=== PATIENT | female | born 1980 | race Caucasian/White ===

== ENCOUNTER → 2021-04-24 | Outpatient (CLI) | payer OTHER | LOC: M WHC 08:48 | PROVIDERS: ATTEND Family Medicine | DX: Z12.31 Encounter for screening mammogram for malignant neoplasm of breast (principal); R92.1 Mammographic calcification found on diagnostic imaging of breast; N63.11 Unspecified lump in the right breast, upper outer quadrant ==

== ENCOUNTER → 2021-09-02 | Outpatient (CLI) | payer OTHER | LOC: M WHC 10:24 | PROVIDERS: ATTEND Family Medicine | DX: R92.8 Other abnormal and inconclusive findings on diagnostic imaging of breast (principal); N63.11 Unspecified lump in the right breast, upper outer quadrant; N63.21 Unspecified lump in the left breast, upper outer quadrant; R92.1 Mammographic calcification found on diagnostic imaging of breast | CPT/HCPCS: 76642; 77066; G0279 ==

== ENCOUNTER → 2021-12-10 | Outpatient (CLI) | payer OTHER ==
[~2021-12-10] MED LIST: ACET325C5 PO; AUGM500T34 PO; MULT-90 PO
== END ==
LOC: M WHC 09:32
PROVIDERS: ATTEND Surgery
DX: R59.9 Enlarged lymph nodes, unspecified (principal); L03.90 Cellulitis, unspecified
CPT/HCPCS: 76882; G0463

== ENCOUNTER → 2021-12-17 | Outpatient (CLI) | payer OTHER ==
[2021-12-17 17:31] VITALS: BP 130/84
== END ==
LOC: M WHCPRO 14:09
PROVIDERS: ATTEND Surgery
DX: R92.8 Other abnormal and inconclusive findings on diagnostic imaging of breast (principal); N63.21 Unspecified lump in the left breast, upper outer quadrant; N63.23 Unspecified lump in the left breast, lower outer quadrant; N63.32 Unspecified lump in axillary tail of the left breast; N63.41 Unspecified lump in right breast, subareolar; N63.11 Unspecified lump in the right breast, upper outer quadrant
CPT/HCPCS: 19083; 19084; 38505; 77066; 88305; G0279

== ENCOUNTER → 2021-12-26 | Outpatient (CLI) | payer OTHER ==
[~2021-12-26] MED LIST changes: +PROHANCE 279.3MG/ML 15ML VIAL As Ordered ONE
== END ==
LOC: M RAD 15:30
PROVIDERS: ATTEND Surgery
DX: C50.912 Malignant neoplasm of unspecified site of left female breast (principal); N63.10 Unspecified lump in the right breast, unspecified quadrant
CPT/HCPCS: A9576; C8908

== ENCOUNTER → 2021-12-31 | Outpatient (CLI) | payer OTHER ==
[~2021-12-31] MED LIST changes: -PROHANCE 279.3MG/ML 15ML VIAL As Ordered ONE
[2021-12-31 15:17] LABS: BLOOD UREA NITROGEN 16 MG/DL (7-18); CALCIUM LEVEL 8.8 MG/DL (8.5-10.1); CARBON DIOXIDE LEVEL 30 MEQ/L (21-32); CHLORIDE LEVEL 104 MEQ/L (98-107); CREATININE FOR GFR 0.76 MG/DL (0.55-1.30); GLOMERULAR FILTRATION RATE > 60.0 (>58); GLUCOSE, FASTING 78 MG/DL (70-100); POTASSIUM SERUM 3.9 MEQ/L (3.5-5.1); SODIUM LEVEL 138 MEQ/L (136-145)
== END ==
LOC: M PLALAB 11:08
PROVIDERS: ATTEND Surgery
DX: C50.812 Malignant neoplasm of overlapping sites of left female breast (principal)

== ENCOUNTER → 2022-01-13 | Outpatient (CLI) | payer OTHER ==
[~2022-01-13] MED LIST changes: +PROHANCE 279.3MG/ML 15ML VIAL ONE
== END ==
LOC: M PLAIMG 01-08 11:13
PROVIDERS: ATTEND Surgery
DX: R94.8 Abnormal results of function studies of other organs and systems (principal); M51.26 Other intervertebral disc displacement, lumbar region; M51.34 Other intervertebral disc degeneration, thoracic region
CPT/HCPCS: 72157; 72158; A9576

== ENCOUNTER 2022-01-30 09:05 | Observation (INO) | payer OTHER ==
[~2022-01-30] VITALS: Ht 157.5 cm; Wt 77.9 kg
[~2022-01-30 09:05] MED LIST changes: +D3 H2000 PO; +HEPARIN SOD (PORCINE) 5000UNITS/ML 1ML VIAL/SYRINGE SQ ONE; -PROHANCE 279.3MG/ML 15ML VIAL ONE; +VITA-243 PO; +ZINC100T3 PO; +ceFAZolin SOD 2 GM in IV 1 EA IV ONE
[2022-01-30] MEDS ORDERED: LR 1,000 ML IV SCH ×2 (09:20→17:05)
[2022-01-30] MEDS ORDERED: SCOPOLAMINE 1MG TRANSDERMAL PATCH TOP ONE (10:45)
[2022-01-30] MEDS ORDERED: propofoL 200 MG/20 ML VIAL As Ordered ONE (10:49)
[2022-01-30] MEDS ORDERED: ROCURONIUM BROMIDE 50 MG/5 ML VIAL As Ordered ONE (10:49)
[2022-01-30] MEDS ORDERED: LIDOCAINE 2% 100MG/5ML SDV (FOR ANES.) As Ordered ONE ×2 (10:49→10:51)
[2022-01-30] MEDS ORDERED: ONDANSETRON 4MG 2ML VIAL As Ordered ONE (10:50)
[2022-01-30] MEDS ORDERED: METOCLOPRAMIDE INJ 10MG/2ML VIAL (J2765 PER 1) As Ordered ONE (10:50)
[2022-01-30] MEDS ORDERED: dexameTHASONE 4 MG/ML 1ML VIAL (J1100 PER 1MG) As Ordered ONE (10:50)
[2022-01-30] MEDS ORDERED: fentaNYL 250 MCG/5 ML INJECTION As Ordered ONE (10:50)
[2022-01-30] MEDS ORDERED: MIDAZOLAM INJ 2MG/2ML VIAL (J2250 PER 1MG) As Ordered ONE (10:51)
[2022-01-30] MEDS ORDERED: BUPIVACAINE HCL 0.25% 30ML VIAL As Ordered ONE (12:05)
[2022-01-30] MEDS ORDERED: LIDOCAINE 1% SDV 30ML VIAL As Ordered ONE (12:05)
[2022-01-30] MEDS ORDERED: LACRILUBE (AKWA TEARS) OPHTH OINT 3.5 GM As Ordered ONE (13:34)
[2022-01-30] MEDS ORDERED: HYDROmorphone HCL 2MG/ML 1ML VIAL As Ordered ONE (15:13)
[2022-01-30] MEDS ORDERED: BUPIVACAINE HCL 0.25% 10ML VIAL As Ordered ONE (16:18)
[2022-01-30] MEDS ORDERED: ACETAMINOPHEN 1000MG 100ML IV BTL (OFIRMEV) (J0131 PER 10MG) As Ordered ONE (16:30)
[2022-01-30] MEDS ORDERED: KETOROLAC 60MG 2ML VIAL As Ordered ONE (16:30)
[2022-01-30] MEDS ORDERED: ePHEDrine SULFATE 25 MG/5 ML(5MG/ML) SYRINGE As Ordered ONE (17:04)
[2022-01-30] MEDS ORDERED: fentaNYL 100 MCG/2 ML INJECTION IV PRN (17:05)
[2022-01-30] MEDS ORDERED: oxyCODONE 5MG TAB PO PRN (17:05)
[2022-01-30] MEDS ORDERED: MORPHINE 2 MG/ML 1ML VIAL IV PRN ×2 (17:05→18:10)
[2022-01-30] MEDS ORDERED: ONDANSETRON 4MG 2ML VIAL IV PRN ×2 (17:05→17:55)
[2022-01-30] MEDS ORDERED: ACETAMINOPHEN TAB 650MG DOSE (2X325MG) PO PRN (17:55)
[2022-01-30] MEDS ORDERED: traMADol 50 MG TAB PO PRN (18:10)
[2022-01-30] MEDS ORDERED: diphenhydrAMINE 50MG/ML VIAL (J1200) IV STA (18:18)
[2022-01-30] MEDS ORDERED: diphenhydrAMINE 50MG/ML VIAL (J1200) As Ordered ONE (18:20)
[2022-01-30 18:49] VITALS: BP 131/80
[2022-01-30] MEDS: LR 1,000 ML IV SCH (18:58)
[2022-01-30] MEDS: HEPARIN SOD (PORCINE) 5000UNITS/ML 1ML VIAL/SYRINGE SQ SCH (21:29)
[2022-01-30] MEDS: ceFAZolin SOD 2 GM in IV 1 EA IV SCH (21:30)
[2022-01-30 21:40] VITALS: BP 130/81
[2022-01-30 22:40] VITALS: BP 131/80
[2022-01-30 23:40] VITALS: BP 124/79
[2022-01-31] VITALS (7 sets, daily range): BP systolic 102–136; BP diastolic 53–79
[2022-01-31] MEDS: ceFAZolin SOD 2 GM in IV 1 EA IV SCH ×3 (05:09→21:56)
[2022-01-31] MEDS: HEPARIN SOD (PORCINE) 5000UNITS/ML 1ML VIAL/SYRINGE SQ SCH (05:09)
[2022-01-31] MEDS: LR 1,000 ML IV SCH (05:09)
[2022-01-31] MEDS ORDERED: D5W/0.45% SODIUM CHLORIDE 1,000 ML IV SCH (10:45)
[2022-01-31 11:42] LABS: HEMATOCRIT 36.1 % (36.0-47.0); HEMOGLOBIN 11.9 g/dl (12.0-15.5); MEAN CORPUSCULAR HEMOGLOBIN 29.2 pg (27.0-33.0); MEAN CORPUSCULAR VOLUME 88.5 fl (80.0-96.0); PLATELET COUNT, AUTOMATED 229 10^3/uL (150-450); RED BLOOD COUNT 4.08 10^6/uL (4.00-5.40); WHITE BLOOD COUNT 11.8 10^3/uL (4.0-10.0)
[2022-01-31] MEDS ORDERED: BUPIVACAINE LIPOSOME/PF 1.3% 20ML VIAL (13.3MG/ML)(EXPAREL) As Ordered ONE (17:39)
[2022-01-31] MEDS ORDERED: BUPIVACAINE HCL 0.25% 10ML VIAL As Ordered ONE (17:40)
[2022-01-31] MEDS ORDERED: ceFAZolin 2 GM/D5W 50 ML IV BAG (J0690 PER 500MG) As Ordered ONE (17:51)
[2022-01-31] MEDS ORDERED: LR 1,000 ML IV SCH ×2 (20:05→20:15)
[2022-01-31] MEDS ORDERED: ONDANSETRON 4MG 2ML VIAL IV PRN (20:05)
[2022-01-31] MEDS ORDERED: fentaNYL 100 MCG/2 ML INJECTION IV PRN (20:05)
[2022-01-31] MEDS ORDERED: MORPHINE 2 MG/ML 1ML VIAL IV PRN (20:05)
[2022-01-31] MEDS ORDERED: oxyCODONE 5MG TAB PO PRN (20:05)
[2022-01-31] MEDS ORDERED: CEPACOL LOZENGE PO PRN (20:15)
[2022-02-01 01:24] VITALS: BP 118/70
[2022-02-01 04:18] VITALS: BP 112/68
[2022-02-01] MEDS: ceFAZolin SOD 2 GM in IV 1 EA IV SCH (05:16)
[2022-02-01] MEDS ORDERED: ULTR50TA8 PO (09:17)
[2022-02-01] MEDS ORDERED: ACET-683 PO (09:17)
[2022-02-01 10:00] VITALS: BP 134/78
== END 2022-02-01 11:07 | disposition home or self-care (01) ==
LOC: M SDC 09:05 → M MS5PR 09:06 → M SDC 02-01 11:55
PROVIDERS: ADMIT Surgery; ATTEND Surgery
DX: C50.912 Malignant neoplasm of unspecified site of left female breast (principal); L76.82 Other postprocedural complications of skin and subcutaneous tissue
CPT/HCPCS: 10140; 19303; 36415; 38525; 76604; 76942; 78195; 81025; 85027; 86850; 86900; 86901; 88305; 88307; 88309; 88342; A4648; A9520; J0131; J0690; J1100; J1170; J1200; J1644; J1885; J2250; J2405; J2765; J3010

== ENCOUNTER → 2022-02-19 | Outpatient (CLI) | payer OTHER ==
[~2022-02-19] MED LIST changes: +ACET-683 PO; -HEPARIN SOD (PORCINE) 5000UNITS/ML 1ML VIAL/SYRINGE SQ ONE; +ULTR50TA8 PO; -ceFAZolin SOD 2 GM in IV 1 EA IV ONE
== END ==
LOC: M LABSMTC 11:27
PROVIDERS: ATTEND Anesthesiology
DX: Z01.812 Encounter for preprocedural laboratory examination (principal); Z20.822 Contact with and (suspected) exposure to COVID-19

== ENCOUNTER 2022-03-10 09:15 | Outpatient (RCR) | payer OTHER ==
[2022-03-18] MEDS ORDERED: ULTR50TA8 PO (12:03)
[2022-04-07] MEDS ORDERED: VITMTA PO (10:33)
[2022-04-07] MEDS ORDERED: ASCO250T20 PO (10:33)
[2022-04-07] MEDS ORDERED: NOXI1TAB PO (10:34)
[2022-04-07] MEDS ORDERED: TAMO20TA8 PO (11:36)
== END 2022-03-23 23:59 | disposition home or self-care (01) ==
LOC: M PT 09:15
PROVIDERS: ATTEND Surgery
DX: I89.0 Lymphedema, not elsewhere classified (principal)

== ENCOUNTER → 2022-03-12 | Outpatient (CLI) | payer OTHER | LOC: M LABSMTC 09:09 | PROVIDERS: ATTEND Anesthesiology | DX: Z01.812 Encounter for preprocedural laboratory examination (principal); Z11.52 Encounter for screening for COVID-19 ==

== ENCOUNTER 2022-03-17 08:37 | Observation (INO) | payer OTHER ==
[~2022-03-17] VITALS: Ht 157.5 cm; Wt 76.1 kg
[2022-03-17] VITALS (7 sets, daily range): BP systolic 120–143; BP diastolic 64–90
[~2022-03-17 08:37] MED LIST changes: +LIDOCAINE 2% 100MG/5ML SDV (FOR ANES.) As Ordered ONE; +MIDAZOLAM INJ 2MG/2ML VIAL (J2250 PER 1MG) As Ordered ONE; +NS 1,000 ML IV ONE; +ROCURONIUM BROMIDE 50 MG/5 ML VIAL As Ordered ONE; +fentaNYL 100 MCG/2 ML INJECTION As Ordered ONE; +propofoL 200 MG/20 ML VIAL As Ordered ONE
[2022-03-17] MEDS ORDERED: LR 1,000 ML IV SCH ×2 (09:50→15:15)
[2022-03-17] MEDS ORDERED: LIDOCAINE 1% SDV 30ML VIAL As Ordered ONE (09:54)
[2022-03-17] MEDS ORDERED: BUPIVACAINE HCL 0.25% 30ML VIAL As Ordered ONE (09:54)
[2022-03-17] MEDS ORDERED: BUPIVACAINE LIPOSOME/PF 1.3% 20ML VIAL (13.3MG/ML)(EXPAREL) As Ordered ONE (09:57)
[2022-03-17] MEDS ORDERED: ISOSULFAN BLUE(LYMPHAZURIN) 1% 50MG/5ML VIAL As Ordered ONE (09:57)
[2022-03-17] MEDS ORDERED: ceFAZolin 2 GM/D5W 50 ML IV BAG (J0690 PER 500MG) As Ordered ONE (09:58)
[2022-03-17] MEDS ORDERED: SCOPOLAMINE 1MG TRANSDERMAL PATCH TOP ONE (10:00)
[2022-03-17] MEDS ORDERED: ceFAZolin SOD 2 GM in IV 1 EA IV ONE (10:05)
[2022-03-17] MEDS ORDERED: HEPARIN SOD (PORCINE) 5000UNITS/ML 1ML VIAL/SYRINGE SQ ONE (10:05)
[2022-03-17] MEDS ORDERED: SUGAMMADEX SODIUM 500 MG/5 ML VIAL (BRIDION) As Ordered ONE (10:33)
[2022-03-17] MEDS ORDERED: GLYCOPYRROLATE INJ 0.2 MG/ML 2 ML VIAL As Ordered ONE (10:42)
[2022-03-17] MEDS ORDERED: dexameTHASONE 4 MG/ML 1ML VIAL (J1100 PER 1MG) As Ordered ONE (10:43)
[2022-03-17] MEDS ORDERED: HYDROmorphone HCL 2MG/ML 1ML VIAL As Ordered ONE (10:51)
[2022-03-17] MEDS ORDERED: METOCLOPRAMIDE INJ 10MG/2ML VIAL (J2765 PER 1) As Ordered ONE (11:15)
[2022-03-17] MEDS ORDERED: ACETAMINOPHEN 1000MG 100ML IV BTL (OFIRMEV) (J0131 PER 10MG) As Ordered ONE (11:15)
[2022-03-17] MEDS ORDERED: ONDANSETRON 4MG 2ML VIAL As Ordered ONE (11:15)
[2022-03-17] MEDS ORDERED: DESFLURANE 240 ML INHALANT As Ordered ONE (14:32)
[2022-03-17] MEDS ORDERED: METOCLOPRAMIDE INJ 10MG/2ML VIAL (J2765 PER 1) IV PRN (15:15)
[2022-03-17] MEDS ORDERED: ONDANSETRON 4MG 2ML VIAL IV PRN ×2 (15:15→15:45)
[2022-03-17] MEDS ORDERED: fentaNYL 100 MCG/2 ML INJECTION IV PRN (15:15)
[2022-03-17] MEDS ORDERED: oxyCODONE 5MG TAB PO PRN (15:15)
[2022-03-17] MEDS ORDERED: MORPHINE 2 MG/ML 1ML VIAL IV PRN (15:45)
[2022-03-17] MEDS ORDERED: ACETAMINOPHEN TAB 650MG DOSE (2X325MG) PO PRN (15:45)
[2022-03-17] MEDS ORDERED: traMADol 50 MG TAB PO PRN (15:45)
[2022-03-17] MEDS: HYDROMORPHONE HCL 0.5 MG/ 0.5 ML SYRINGE (J1170 PER 1) IV PRN ×2 (15:50→15:57)
[2022-03-17] MEDS: LR 1,000 ML IV SCH ×2 (16:30→21:20)
[2022-03-17] MEDS: ceFAZolin SOD 2 GM in IV 1 EA IV SCH (18:31)
[2022-03-17] MEDS: HEPARIN SOD (PORCINE) 5000UNITS/ML 1ML VIAL/SYRINGE SQ SCH (22:20)
[2022-03-18] VITALS: BP 122/65
[2022-03-18] MEDS: ceFAZolin SOD 2 GM in IV 1 EA IV SCH (02:41)
[2022-03-18 04:00] VITALS: BP 132/71
[2022-03-18] MEDS: HEPARIN SOD (PORCINE) 5000UNITS/ML 1ML VIAL/SYRINGE SQ SCH (06:08)
[2022-03-18 08:00] VITALS: BP 125/77
[2022-03-18] MEDS ORDERED: ULTR50TA8 PO (12:03)
[2022-03-18 12:15] VITALS: BP 130/74
== END 2022-03-18 14:15 | disposition home or self-care (01) ==
LOC: M SDC 08:37 → M ED INP 08:38 → UNDOADMOB 08:38 → M PED 16:25
PROVIDERS: ADMIT Surgery; ATTEND Surgery
DX: C50.912 Malignant neoplasm of unspecified site of left female breast (principal); C77.9 Secondary and unspecified malignant neoplasm of lymph node, unspecified; D24.1 Benign neoplasm of right breast; Z80.3 Family history of malignant neoplasm of breast; Z90.12 Acquired absence of left breast and nipple
CPT/HCPCS: 36415; 38740; 81025; 86850; 86900; 86901; 88307; 96365; 96366; 96372; 96375; C9290; J0131; J0690; J1100; J1170; J1644; J2250; J2405; J2765; J3010; Q9968

== ENCOUNTER → 2022-04-09 | Outpatient (CLI) | payer OTHER ==
[~2022-04-09] MED LIST changes: +ASCO250T20 PO; -LIDOCAINE 2% 100MG/5ML SDV (FOR ANES.) As Ordered ONE; -MIDAZOLAM INJ 2MG/2ML VIAL (J2250 PER 1MG) As Ordered ONE; +NOXI1TAB PO; -NS 1,000 ML IV ONE; -ROCURONIUM BROMIDE 50 MG/5 ML VIAL As Ordered ONE; +TAMO20TA8 PO; +VITMTA PO; -fentaNYL 100 MCG/2 ML INJECTION As Ordered ONE; -propofoL 200 MG/20 ML VIAL As Ordered ONE
== END ==
LOC: M ONCR 13:18
PROVIDERS: ATTEND General Practice
DX: C50.512 Malignant neoplasm of lower-outer quadrant of left female breast (principal); Z80.3 Family history of malignant neoplasm of breast; Z90.12 Acquired absence of left breast and nipple; Z91.048 Other nonmedicinal substance allergy status

== ENCOUNTER 2022-04-20 12:40 | Outpatient (RCR) | payer OTHER | END 2022-04-22 23:59 | disposition home or self-care (01) | LOC: M PT 12:40 | PROVIDERS: ATTEND Surgery | DX: I89.0 Lymphedema, not elsewhere classified (principal) ==

== ENCOUNTER 2022-04-29 09:51 | Outpatient (RCR) | payer OTHER ==
[2022-05-27] MEDS ORDERED: PROC10TA5 PO (13:59)
[2022-05-27] MEDS ORDERED: ONDA4TAB6 PO (14:00)
== END 2022-05-23 ==
LOC: M PT 09:51
PROVIDERS: ATTEND Surgery
DX: C77.9 Secondary and unspecified malignant neoplasm of lymph node, unspecified (principal); I89.0 Lymphedema, not elsewhere classified

== ENCOUNTER → 2022-05-06 | Outpatient (CLI) | payer OTHER | LOC: M CARPUL 11:10 | PROVIDERS: ATTEND Specialist | DX: C50.919 Malignant neoplasm of unspecified site of unspecified female breast (principal) ==

== ENCOUNTER → 2022-05-31 | Outpatient (CLI) | payer OTHER ==
[~2022-05-31] MED LIST changes: +ONDA4TAB6 PO; +PROC10TA5 PO
== END ==
LOC: M LABSMTC 11:19
PROVIDERS: ATTEND Anesthesiology
DX: Z01.812 Encounter for preprocedural laboratory examination (principal); Z20.822 Contact with and (suspected) exposure to COVID-19

== ENCOUNTER → 2022-06-03 | Outpatient (CLI) | payer OTHER ==
[~2022-06-03] MED LIST changes: +LIDOCAINE 1% MDV 20ML VIAL As Ordered ONE; +MIDAZOLAM INJ 2MG/2ML VIAL As Ordered ONE; +NS 1,000 ML IV SCH; +ceFAZolin 2 GM/D5W 50 ML IV BAG As Ordered ONE; +ceFAZolin SOD 2 GM in IV 1 EA IV ONE; +diphenhydrAMINE 50MG/ML VIAL As Ordered ONE; +fentaNYL 100 MCG/2 ML INJECTION As Ordered ONE
[2022-06-03 14:25] VITALS: BP 129/83
== END ==
LOC: M IRPRO 10:37
PROVIDERS: ATTEND Specialist
DX: C50.919 Malignant neoplasm of unspecified site of unspecified female breast (principal)
CPT/HCPCS: 36561; 99152; 99153; C1769; C1788; C1894

== ENCOUNTER → 2022-06-23 | Outpatient (POV) | payer OTHER ==
[~2022-06-23] VITALS: Ht 157.5 cm; Wt 79.5 kg
[~2022-06-23] MED LIST changes: +LIDO1CRE42 TOP; -LIDOCAINE 1% MDV 20ML VIAL As Ordered ONE; -MIDAZOLAM INJ 2MG/2ML VIAL As Ordered ONE; -NS 1,000 ML IV SCH; -ceFAZolin 2 GM/D5W 50 ML IV BAG As Ordered ONE; -ceFAZolin SOD 2 GM in IV 1 EA IV ONE; -diphenhydrAMINE 50MG/ML VIAL As Ordered ONE; -fentaNYL 100 MCG/2 ML INJECTION As Ordered ONE
[2022-06-23 12:50] VITALS: BP 154/77
== END ==
LOC: M IRPOV 12:41
PROVIDERS: ATTEND Radiology Diagnostic Radiology
DX: Z45.2 Encounter for adjustment and management of vascular access device (principal); Z91.048 Other nonmedicinal substance allergy status

== ENCOUNTER 2022-08-20 14:48 | Outpatient (RCR) | payer OTHER | END 2022-08-21 | LOC: M PT 14:48 | PROVIDERS: ATTEND Family Medicine | DX: I89.0 Lymphedema, not elsewhere classified (principal) ==

== ENCOUNTER 2022-09-09 14:45 | Outpatient (RCR) | payer OTHER ==
[2022-09-14] MEDS ORDERED: CALCCHW4 PO (10:35)
== END 2022-09-20 ==
LOC: M PT 14:45
PROVIDERS: ATTEND Family Medicine
DX: I97.2 Postmastectomy lymphedema syndrome (principal)

== ENCOUNTER 2022-10-13 13:30 | Outpatient (RCR) | payer OTHER ==
[~2022-10-13 13:30] MED LIST changes: +CALCCHW4 PO
[2022-10-26] MEDS ORDERED: GABA-282 PO (10:44)
== END 2022-10-21 ==
LOC: M PT 13:30
PROVIDERS: ATTEND Family Medicine
DX: I97.2 Postmastectomy lymphedema syndrome (principal)

== ENCOUNTER 2022-11-17 08:24 | Outpatient (RCR) | payer OTHER ==
[~2022-11-17 08:24] MED LIST changes: +GABA-282 PO
== END 2022-11-20 ==
LOC: M PT 08:24
PROVIDERS: ATTEND Family Medicine
DX: I97.2 Postmastectomy lymphedema syndrome (principal); Z85.3 Personal history of malignant neoplasm of breast

== ENCOUNTER → 2022-12-01 | Outpatient (CLI) | payer OTHER ==
[~2022-12-01] MED LIST changes: -LIDO1CRE42 TOP; +LIDO30CR18 TOP
== END ==
LOC: M ONCR 13:51
PROVIDERS: ATTEND General Practice
DX: C50.912 Malignant neoplasm of unspecified site of left female breast (principal); G56.93 Unspecified mononeuropathy of bilateral upper limbs; G57.93 Unspecified mononeuropathy of bilateral lower limbs; R22.32 Localized swelling, mass and lump, left upper limb; Z79.899 Other long term (current) drug therapy; Z92.21 Personal history of antineoplastic chemotherapy

== ENCOUNTER 2022-12-08 08:27 | Outpatient (RCR) | payer OTHER | END 2022-12-21 | LOC: M PT 08:27 | PROVIDERS: ATTEND Family Medicine | DX: I89.0 Lymphedema, not elsewhere classified (principal) ==

== ENCOUNTER → 2022-12-21 | Outpatient (RCR) | payer OTHER | LOC: M ONCR 12-04 10:20 | PROVIDERS: ATTEND General Practice | DX: C50.412 Malignant neoplasm of upper-outer quadrant of left female breast (principal) ==

== ENCOUNTER → 2022-12-22 | Outpatient (CLI) | payer OTHER | LOC: M WHC 11:02 | PROVIDERS: ATTEND Nurse Practitioner Women's Health | DX: C50.812 Malignant neoplasm of overlapping sites of left female breast (principal); C77.3 Secondary and unspecified malignant neoplasm of axilla and upper limb lymph nodes | CPT/HCPCS: 76642; 77065; G0279 ==

== ENCOUNTER → 2022-12-31 | Outpatient (CLI) | payer OTHER | LOC: M CARPUL 14:25 | PROVIDERS: ATTEND Internal Medicine Hematology & Oncology | DX: C50.919 Malignant neoplasm of unspecified site of unspecified female breast (principal); Z13.6 Encounter for screening for cardiovascular disorders; Z79.899 Other long term (current) drug therapy; I08.2 Rheumatic disorders of both aortic and tricuspid valves ==

== ENCOUNTER → 2023-01-21 | Outpatient (RCR) | payer OTHER | LOC: M ONCR 12-22 14:46 | PROVIDERS: ATTEND General Practice | DX: Z51.0 Encounter for antineoplastic radiation therapy (principal); C50.412 Malignant neoplasm of upper-outer quadrant of left female breast ==

== ENCOUNTER → 2023-02-03 | Outpatient (CLI) | payer OTHER | LOC: M ONCR 13:01 | PROVIDERS: ATTEND General Practice | DX: L59.8 Other specified disorders of the skin and subcutaneous tissue related to radiation (principal); Z92.3 Personal history of irradiation ==

== ENCOUNTER → 2023-03-23 | Outpatient (CLI) | payer OTHER ==
[~2023-03-23] MED LIST changes: +LEXA1TAB2 PO; +TAMO10TA8
== END ==
LOC: M WHC 07:31
PROVIDERS: ATTEND Nurse Practitioner
DX: N63.20 Unspecified lump in the left breast, unspecified quadrant (principal); Z85.3 Personal history of malignant neoplasm of breast; Z90.12 Acquired absence of left breast and nipple

== ENCOUNTER → 2023-06-28 | Outpatient (CLI) | payer OTHER ==
[~2023-06-28] MED LIST changes: +TRAZ-252
== END ==
LOC: M WHC 14:22
PROVIDERS: ATTEND Nurse Practitioner Women's Health
DX: R92.8 Other abnormal and inconclusive findings on diagnostic imaging of breast (principal); Z85.3 Personal history of malignant neoplasm of breast; Z90.12 Acquired absence of left breast and nipple; R92.331 Mammographic heterogeneous density, right breast
CPT/HCPCS: 77065; G0279

== ENCOUNTER → 2023-07-27 | Outpatient (CLI) | payer OTHER | LOC: M ONCR 13:45 | PROVIDERS: ATTEND General Practice | DX: Z08 Encounter for follow-up examination after completed treatment for malignant neoplasm (principal); Z85.3 Personal history of malignant neoplasm of breast; I97.2 Postmastectomy lymphedema syndrome; Z71.2 Person consulting for explanation of examination or test findings; Z79.810 Long term (current) use of selective estrogen receptor modulators (SERMs); Z79.899 Other long term (current) drug therapy; Z90.12 Acquired absence of left breast and nipple; Z91.048 Other nonmedicinal substance allergy status; Z92.21 Personal history of antineoplastic chemotherapy; Z92.3 Personal history of irradiation ==

== ENCOUNTER → 2024-01-07 | Outpatient (CLI) | payer OTHER ==
[~2024-01-07] MED LIST changes: +ONDA-282 PO; -ONDA4TAB6 PO; +PROHANCE 279.3MG/ML 15ML VIAL As Ordered ONE; +PROHANCE 279.3MG/ML 5ML VIAL As Ordered ONE; +TRAZ-257
== END ==
LOC: M RAD 10:32
PROVIDERS: ATTEND Specialist
DX: Z85.3 Personal history of malignant neoplasm of breast (principal); D24.1 Benign neoplasm of right breast
CPT/HCPCS: A9576; C8908

== ENCOUNTER → 2024-02-01 | Outpatient (CLI) | payer OTHER ==
[~2024-02-01] MED LIST changes: -PROHANCE 279.3MG/ML 15ML VIAL As Ordered ONE; -PROHANCE 279.3MG/ML 5ML VIAL As Ordered ONE
== END ==
LOC: M ONCR 13:49
PROVIDERS: ATTEND General Practice
DX: Z08 Encounter for follow-up examination after completed treatment for malignant neoplasm (principal); Z85.3 Personal history of malignant neoplasm of breast; M79.10 Myalgia, unspecified site; Z90.12 Acquired absence of left breast and nipple; Z92.21 Personal history of antineoplastic chemotherapy; Z92.3 Personal history of irradiation; Z79.810 Long term (current) use of selective estrogen receptor modulators (SERMs); Z91.048 Other nonmedicinal substance allergy status; Z79.899 Other long term (current) drug therapy

== ENCOUNTER → 2024-06-30 | Outpatient (CLI) | payer OTHER ==
[~2024-06-30] MED LIST changes: +GABA-1172 PO; -GABA-282 PO
== END ==
LOC: M WHC 08:51
PROVIDERS: ATTEND Nurse Practitioner Family
DX: Z12.31 Encounter for screening mammogram for malignant neoplasm of breast (principal); R92.333 Mammographic heterogeneous density, bilateral breasts
CPT/HCPCS: 77065; G0279

== ENCOUNTER → 2024-09-13 | Outpatient (REF) | payer OTHER ==
[~2024-09-13] MED LIST changes: +BACTDSTA
== END ==
LOC: M LAB REF 12:59
PROVIDERS: ATTEND Surgery
DX: L30.8 Other specified dermatitis (principal); Z85.3 Personal history of malignant neoplasm of breast

== ENCOUNTER → 2024-10-10 | Day surgery (SDC) | payer OTHER ==
[~2024-10-10] VITALS: Ht 157.5 cm; Wt 92.1 kg
[~2024-10-10] MED LIST changes: +CALC600C3 PO; +LIDOCAINE 2% 100MG/5ML SDV (FOR ANES.) As Ordered ONE; +PRED50TA57 PO; +THERTAB52 PO; -TRAZ-257; +TRAZ-257 PO; +propofoL 200 MG/20 ML VIAL As Ordered ONE
[2024-10-10 12:16] VITALS: TEMP 97.7
[2024-10-10 12:32] VITALS: BP 117/66; O2SAT 100
== END | disposition home or self-care (01) ==
LOC: M OPP 08:19
PROVIDERS: ATTEND Surgery
DX: Z12.11 Encounter for screening for malignant neoplasm of colon (principal); D12.7 Benign neoplasm of rectosigmoid junction; G47.30 Sleep apnea, unspecified; Z91.048 Other nonmedicinal substance allergy status; Z79.810 Long term (current) use of selective estrogen receptor modulators (SERMs); Z79.899 Other long term (current) drug therapy

== ENCOUNTER → 2024-12-29 | Outpatient (CLI) | payer OTHER ==
[~2024-12-29] MED LIST changes: -LIDOCAINE 2% 100MG/5ML SDV (FOR ANES.) As Ordered ONE; +PROHANCE 279.3MG/ML 15ML VIAL As Ordered ONE; +PROHANCE 279.3MG/ML 5ML VIAL As Ordered ONE; -propofoL 200 MG/20 ML VIAL As Ordered ONE
== END ==
LOC: M RAD 14:33
PROVIDERS: ATTEND Nurse Practitioner Family
DX: Z12.39 Encounter for other screening for malignant neoplasm of breast (principal); Z85.3 Personal history of malignant neoplasm of breast; Z90.12 Acquired absence of left breast and nipple
CPT/HCPCS: A9576; C8908

== ENCOUNTER → 2025-01-15 | Outpatient (CLI) | payer OTHER ==
[~2025-01-15] MED LIST changes: -PROHANCE 279.3MG/ML 15ML VIAL As Ordered ONE; -PROHANCE 279.3MG/ML 5ML VIAL As Ordered ONE
== END ==
LOC: M PLAIMG 09:40
PROVIDERS: ATTEND Physician Assistant
DX: R94.31 Abnormal electrocardiogram [ECG] [EKG] (principal)

== ENCOUNTER → 2025-03-12 | Outpatient (CLI) | payer OTHER | LOC: M RAD 10:04 | PROVIDERS: ATTEND Registered Nurse | DX: N93.9 Abnormal uterine and vaginal bleeding, unspecified (principal); N83.202 Unspecified ovarian cyst, left side ==

== ENCOUNTER → 2025-03-30 | Outpatient (CLI) | payer OTHER | LOC: M ONCR 08:10 | PROVIDERS: ATTEND General Practice | DX: N93.9 Abnormal uterine and vaginal bleeding, unspecified (principal); R21 Rash and other nonspecific skin eruption; Z85.3 Personal history of malignant neoplasm of breast; Z90.12 Acquired absence of left breast and nipple; Z92.21 Personal history of antineoplastic chemotherapy; Z92.3 Personal history of irradiation; Z79.810 Long term (current) use of selective estrogen receptor modulators (SERMs); Z91.048 Other nonmedicinal substance allergy status; Z79.899 Other long term (current) drug therapy ==